=== PATIENT | male | born 1930 | race Caucasian/White ===

== ENCOUNTER 2018-02-01 08:02 | Inpatient (IN) | payer OTHER, MEDICARE ==
[~2018-02-01] VITALS: Ht 165.1 cm; Wt 62.3 kg
[2018-02-01] MEDS ORDERED: FUROSEMIDE 20 MG/2 ML VIAL IV ONE (08:45)
[2018-02-01 09:35] LABS: Basophils # (auto) 0.1 uL; Basophils % (auto) 0.5 % (0.0-2.0); Eosinophils # (auto) 0.1 uL; Hematocrit 34.6 % (41.0-53.0); Hemoglobin 10.9 g/dL (13.5-17.5); Lymphocytes # (auto) 0.7 uL; Lymphocytes % (auto) 7.2 % (10.0-50.0); Mean Corpuscular Hemoglobin 28.8 pg (28.0-32.0); Mean Corpuscular Hgb Conc. 31.7 g/dL (32.0-36.0); Mean Corpuscular Volume 90.8 fL (80.0-100.0); Monocytes # (auto) 0.7 uL; Monocytes % (auto) 6.6 % (0.0-12.0); Neutrophils # (auto) 8.5 uL; Neutrophils % (auto) 84.7 % (37.0-80.0); Platelet Count (auto) 196 10^3/uL (140-450); Red Blood Cells 3.81 10^6/uL (4.5-5.90); Red Cell Distribution Width 16.7 % (11.8-14.3)
[2018-02-01 09:46] LABS: INR 1.11 (0.9-1.15); Prothrombin Time 11.8 sec (9.27-12.13)
[2018-02-01 09:56] LABS: Alanine Aminotransferase 54 U/L (16-61); Albumin 2.9 g/dL (3.4-5.0); Alkaline Phosphatase 105 U/L (45-117); Anion Gap 5 (5-15); Aspartate Aminotransferase 25 U/L (15-37); BUN/Creatinine Ratio 29.4; Bilirubin, Total 0.6 mg/dL (0.2-1.0); Blood Urea Nitrogen 25 mg/dL (7-18); Calcium 8.6 mg/dL (8.5-10.1); Carbon Dioxide 31 mmol/L (21-32); Chloride 103 mmol/L (98-107); GFR African American 110 mL/min; GFR Non-African American 91 mL/min; Glucose 144 mg/dL (74-106); Potassium 3.6 mmol/L (3.5-5.1); Sodium 139 mmol/L (136-145); Total Protein 7.1 g/dL (6.4-8.2)
[2018-02-01] MEDS ORDERED: ONDANSETRON HCL 4 MG/2 ML VIAL IV PRN (10:45)
[2018-02-01] MEDS ORDERED: DEXTROSE (50%) 50ML SYRG IV PRN (10:45)
[2018-02-01] MEDS ORDERED: DOCUSATE SOD 100 MG CAP PO PRN (10:45)
[2018-02-01] MEDS ORDERED: ACETAMINOPHEN 325 MG TAB PO PRN (10:45)
[2018-02-01] MEDS ORDERED: cefTRIAXone 1GM/10ml IVPUSH 10 ML IV ONE (11:00)
[2018-02-01] MEDS: ACCU-CHEK COMFORT CURVE STRIP VI SCH ×3 (11:11→23:29)
[2018-02-01] MEDS: InsuLIN REG 1unit/0.01ml Soln (100units/ml) SC SCH ×3 (11:11→23:29)
[2018-02-01] MEDS: MORPHINE SULFATE 8mg/ml INJ SDV IV PRN ×3 (11:20→23:00)
[2018-02-01] MEDS: Boost Glucose Control 8 Ounces PO SCH ×2 (12:28→18:29)
[2018-02-01 13:10] VITALS: BP 138/86
[2018-02-01] MEDS: ALBUTEROL SULF 2.5 MG/0.5ML(0.5%) NEB SOLN NEB SCH ×2 (13:20→18:40)
[2018-02-01] MEDS: IPRATROPIUM BROM 0.5 MG/2.5ML INH SOL NEB SCH ×2 (13:21→18:40)
[2018-02-01] MEDS: METOPROLOL TARTRATE 25 MG TAB PO SCH ×2 (14:00→22:00)
[2018-02-01 16:01] LABS: Urine Amorphous Crystal FEW /hpf (None Seen); Urine Bacteria NONE SEEN /hpf (None Seen); Urine Blood Negative /uL (Negative); Urine Mucus FEW (None Seen); Urine Specific Gravity 1.006 (1.001-1.035); Urine WBC <1 /hpf (0 - 3)
[2018-02-01 17:00] VITALS: BP 140/79
[2018-02-01] MEDS ORDERED: LEVOTHYROXINE SODIUM 88 MCG TAB PO ONE (17:15)
[2018-02-01] MEDS: SODIUM CHLOR 0.9% PF (SALINE LOCK) 10ML VIAL/SYR IV SCH ×2 (17:23→22:00)
[2018-02-01] MEDS: HALOPERIDOL 1 MG TAB PO PRN (17:53)
[2018-02-01] MEDS: FUROSEMIDE 20 MG/2 ML VIAL IV SCH (18:29)
[2018-02-01 22:00] VITALS: BP 138/83
[2018-02-01] MEDS: FAMOTIDINE 20 MG TAB PO SCH (22:00)
[2018-02-01] MEDS: ASCORBIC ACID 500 MG TAB PO SCH (22:00)
[2018-02-01] MEDS: POTASSIUM CHLORIDE 8 MEQ TAB PO SCH (22:00)
[2018-02-01 22:31] VITALS: BP 138/83
[2018-02-02] MEDS: ALBUTEROL SULF 2.5 MG/0.5ML(0.5%) NEB SOLN NEB SCH ×4 (00:30→18:45)
[2018-02-02] MEDS: IPRATROPIUM BROM 0.5 MG/2.5ML INH SOL NEB SCH ×4 (00:30→18:45)
[2018-02-02 05:00] VITALS: BP 139/88
[2018-02-02] MEDS: METOPROLOL TARTRATE 25 MG TAB PO SCH ×3 (06:00→22:20)
[2018-02-02 06:23] LABS: Basophils # (auto) 0.1 uL; Basophils % (auto) 0.6 % (0.0-2.0); Eosinophils # (auto) 0.2 uL; Eosinophils % (auto) 1.9 % (0.0-7.0); Hematocrit 30.3 % (41.0-53.0); Hemoglobin 10.2 g/dL (13.5-17.5); Lymphocytes # (auto) 0.9 uL; Lymphocytes % (auto) 9.8 % (10.0-50.0); Mean Corpuscular Hemoglobin 29.9 pg (28.0-32.0); Mean Corpuscular Hgb Conc. 33.8 g/dL (32.0-36.0); Mean Corpuscular Volume 88.6 fL (80.0-100.0); Monocytes # (auto) 0.9 uL; Monocytes % (auto) 10.1 % (0.0-12.0); Neutrophils # (auto) 7.1 uL; Neutrophils % (auto) 77.6 % (37.0-80.0); Platelet Count (auto) 182 10^3/uL (140-450); Red Blood Cells 3.42 10^6/uL (4.5-5.90); Red Cell Distribution Width 16.1 % (11.8-14.3); White Blood Cell 9.1 10^3/uL (4.4-10.8)
[2018-02-02] MEDS: FUROSEMIDE 20 MG/2 ML VIAL IV SCH ×2 (06:45→17:23)
[2018-02-02 06:46] LABS: Albumin 2.7 g/dL (3.4-5.0); Calcium 8.3 mg/dL (8.5-10.1); Potassium 3.2 mmol/L (3.5-5.1)
[2018-02-02] MEDS: SODIUM CHLOR 0.9% PF (SALINE LOCK) 10ML VIAL/SYR IV SCH ×3 (06:46→22:26)
[2018-02-02] MEDS: InsuLIN REG 1unit/0.01ml Soln (100units/ml) SC SCH ×4 (06:47→22:00)
[2018-02-02] MEDS: LEVOTHYROXINE SODIUM 88 MCG TAB PO SCH (06:47)
[2018-02-02] MEDS: ACCU-CHEK COMFORT CURVE STRIP VI SCH ×4 (06:47→22:27)
[2018-02-02 06:49] LABS: BUN/Creatinine Ratio 24.4
[2018-02-02 06:53] LABS: Bilirubin, Total 0.8 mg/dL (0.2-1.0); Total Protein 6.8 g/dL (6.4-8.2)
[2018-02-02] MEDS: Boost Glucose Control 8 Ounces PO SCH ×3 (08:00→18:00)
[2018-02-02 09:00] VITALS: BP 109/60
[2018-02-02] MEDS ORDERED: cefTRIAXone 1GM/10ml IVPUSH 10 ML IV SCH (09:00)
[2018-02-02] MEDS: MULTIPLE VITAMIN TAB PO SCH (11:32)
[2018-02-02] MEDS: POTASSIUM CHLORIDE 8 MEQ TAB PO SCH ×2 (11:32→22:20)
[2018-02-02] MEDS: FAMOTIDINE 20 MG TAB PO SCH ×2 (11:32→22:20)
[2018-02-02] MEDS: ASCORBIC ACID 500 MG TAB PO SCH ×2 (11:32→22:20)
[2018-02-02] MEDS: ZINC SULFATE 220 MG CAP PO SCH (11:32)
[2018-02-02 13:00] VITALS: BP 139/71
[2018-02-02] MEDS ORDERED: POTASSIUM CHLORIDE 40 MEQ, LIDOCAINE 1% (LOCAL ANESTH.) 4 ML in SODIUM CHL 0.9% 100 ML IV ONE (14:30)
[2018-02-02] MEDS: HYDROcodone-ACET 5/325MG TAB PO PRN (14:30)
[2018-02-02] MEDS: HALOPERIDOL 1 MG TAB PO PRN (15:13)
[2018-02-02] MEDS: POTASSIUM CHL 20MEQ/100ML 100 ML IV SCH ×2 (17:17→20:00)
[2018-02-02 21:16] VITALS: BP 138/66
[2018-02-02] MEDS: MORPHINE SULFATE 8mg/ml INJ SDV IV PRN (22:27)
[2018-02-03] MEDS: MORPHINE SULFATE 8mg/ml INJ SDV IV PRN (04:30)
[2018-02-03 05:07] VITALS: BP 102/71
[2018-02-03] MEDS: FUROSEMIDE 20 MG/2 ML VIAL IV SCH ×2 (06:00→17:43)
[2018-02-03] MEDS: SODIUM CHLOR 0.9% PF (SALINE LOCK) 10ML VIAL/SYR IV SCH ×3 (06:33→22:00)
[2018-02-03] MEDS: InsuLIN REG 1unit/0.01ml Soln (100units/ml) SC SCH ×4 (06:33→22:00)
[2018-02-03] MEDS: ACCU-CHEK COMFORT CURVE STRIP VI SCH ×4 (06:33→22:00)
[2018-02-03 06:38] LABS: BUN/Creatinine Ratio 26.5; Calcium 8.9 mg/dL (8.5-10.1); Potassium 3.8 mmol/L (3.5-5.1)
[2018-02-03 06:42] LABS: Magnesium 1.8 mg/dL (1.6-2.6)
[2018-02-03] MEDS: METOPROLOL TARTRATE 25 MG TAB PO SCH ×3 (06:46→22:00)
[2018-02-03] MEDS: LEVOTHYROXINE SODIUM 88 MCG TAB PO SCH (06:46)
[2018-02-03] MEDS: ALBUTEROL SULF 2.5 MG/0.5ML(0.5%) NEB SOLN NEB SCH ×4 (07:21→18:39)
[2018-02-03] MEDS: IPRATROPIUM BROM 0.5 MG/2.5ML INH SOL NEB SCH ×4 (07:22→18:39)
[2018-02-03] MEDS: Boost Glucose Control 8 Ounces PO SCH ×3 (08:00→18:00)
[2018-02-03 09:00] VITALS: BP 110/66
[2018-02-03] MEDS: POTASSIUM CHLORIDE 8 MEQ TAB PO SCH ×2 (10:00→22:00)
[2018-02-03] MEDS: ASCORBIC ACID 500 MG TAB PO SCH ×2 (10:00→22:00)
[2018-02-03] MEDS: ZINC SULFATE 220 MG CAP PO SCH (10:00)
[2018-02-03] MEDS: MULTIPLE VITAMIN TAB PO SCH (10:00)
[2018-02-03] MEDS: FAMOTIDINE 20 MG TAB PO SCH ×2 (10:00→22:00)
[2018-02-03 13:00] VITALS: BP 119/69
[2018-02-03] MEDS ORDERED: HALOPERIDOL LACTATE 5 MG/ML INJ VIAL IM ONE (16:30)
[2018-02-03 17:00] VITALS: BP 138/83
[2018-02-03] MEDS ORDERED: HALOPERIDOL LACTATE 5 MG/ML INJ VIAL IM PRN (17:45)
[2018-02-03] MEDS ORDERED: TRANEXAMIC ACID 10 ML ONE (20:27)
[2018-02-03] MEDS ORDERED: LIDOCAINE 1% HCL (LOCAL ANESTH.) INJ 20ML MDV ONE (20:27)
[2018-02-03] MEDS ORDERED: BUPIVACAINE 0.25% INJ 50ML VIAL ONE (20:27)
[2018-02-03] MEDS ORDERED: VANCOMYCIN HCL 1000 MG VL ONE (20:28)
[2018-02-03] MEDS ORDERED: MIDAZOLAM HCL 1MG/1ML-2 ML VIAL ONE ×2 (20:29→22:11)
[2018-02-03] MEDS ORDERED: fentaNYL CITRATE 100 MCG/2 ML VL ONE (20:29)
[2018-02-03] MEDS ORDERED: MEPERIDINE HCL (50 MG/ML) 1 ML VIAL ONE (20:30)
[2018-02-03] MEDS ORDERED: KETOROLAC TROMETH 30 MG/ML 1ML VIAL ONE ×2 (20:32→20:33)
[2018-02-03] MEDS ORDERED: MORPHINE SULF(PF) 0.5MG/ML 10ML VIAL ONE (20:32)
[2018-02-03] MEDS ORDERED: TETRACAINE 1% INJ 2 ML VIAL IJ ONE (20:37)
[2018-02-03] MEDS ORDERED: DEXAMETHASONE SOD PHOS 10MG/1ML VIAL INJ ONE (21:03)
[2018-02-03] MEDS ORDERED: PROPOFOL 10 MG/ML 20 ML IV ONE (21:03)
[2018-02-03] MEDS ORDERED: LABETALOL HCL 5 MG/ML 4ML SYRINGE IV PRN (21:15)
[2018-02-03] MEDS ORDERED: MORPHINE SULFATE 8mg/ml INJ SDV IV PRN ×2 (21:15→22:45)
[2018-02-03] MEDS ORDERED: ePHEDrine SULFATE 50 MG/ML AMP IV PRN (21:15)
[2018-02-03] MEDS ORDERED: HYDROmorphone HCL 2 MG/ML VL IV PRN (21:15)
[2018-02-03] MEDS ORDERED: MIDAZOLAM HCL 1MG/1ML-2 ML VIAL IV PRN (21:15)
[2018-02-03] MEDS ORDERED: ONDANSETRON HCL 4 MG/2 ML VIAL IV ONE (21:15)
[2018-02-03] MEDS ORDERED: KETOROLAC TROMETH 30 MG/ML 1ML VIAL IV ONE (21:15)
[2018-02-03] MEDS ORDERED: PHENYLEPHRINE HCL 10 MG/ML VL ONE (22:14)
[2018-02-03] MEDS ORDERED: NITROGLYCERIN 0.4 MG SL TAB SL PRN (22:45)
[2018-02-04] VITALS (8 sets, daily range): BP systolic 72–111; BP diastolic 44–64
[2018-02-04] MEDS: LACTATED RINGER'S 1,000 ML IV SCH ×3 (00:24→18:15)
[2018-02-04] MEDS: ceFAZolin 1GM/100ML 50 ML IV SCH ×3 (00:25→11:54)
[2018-02-04] MEDS: IPRATROPIUM BROM 0.5 MG/2.5ML INH SOL NEB SCH ×5 (00:29→22:35)
[2018-02-04] MEDS: ALBUTEROL SULF 2.5 MG/0.5ML(0.5%) NEB SOLN NEB SCH ×5 (00:29→22:35)
[2018-02-04] MEDS: FUROSEMIDE 20 MG/2 ML VIAL IV SCH (05:28)
[2018-02-04] MEDS: METOPROLOL TARTRATE 25 MG TAB PO SCH (05:28)
[2018-02-04] MEDS: SODIUM CHLOR 0.9% PF (SALINE LOCK) 10ML VIAL/SYR IV SCH ×3 (05:28→22:35)
[2018-02-04] MEDS: ACCU-CHEK COMFORT CURVE STRIP VI SCH ×4 (06:23→22:00)
[2018-02-04] MEDS: InsuLIN REG 1unit/0.01ml Soln (100units/ml) SC SCH ×4 (06:24→22:43)
[2018-02-04] MEDS: LEVOTHYROXINE SODIUM 88 MCG TAB PO SCH (07:00)
[2018-02-04 07:33] LABS: Albumin 2.4 g/dL (3.4-5.0); BUN/Creatinine Ratio 29.1; Calcium 8.3 mg/dL (8.5-10.1); Potassium 5.1 mmol/L (3.5-5.1)
[2018-02-04 07:40] LABS: Bilirubin, Total 0.6 mg/dL (0.2-1.0)
[2018-02-04 07:41] LABS: Basophils # (auto) 0 uL; Basophils % (auto) 0.1 % (0.0-2.0); Eosinophils # (auto) 0 uL; Eosinophils % (auto) 0.1 % (0.0-7.0); Hemoglobin 9.9 g/dL (13.5-17.5); Lymphocytes # (auto) 0.5 uL; Lymphocytes % (auto) 4.5 % (10.0-50.0); Mean Corpuscular Hemoglobin 29.4 pg (28.0-32.0); Mean Corpuscular Volume 88.9 fL (80.0-100.0); Monocytes # (auto) 0.3 uL; Monocytes % (auto) 2.8 % (0.0-12.0); Neutrophils # (auto) 9.7 uL; Neutrophils % (auto) 92.5 % (37.0-80.0); Platelet Count (auto) 167 10^3/uL (140-450); Red Blood Cells 3.37 10^6/uL (4.5-5.90); Red Cell Distribution Width 17.1 % (11.8-14.3); White Blood Cell 10.5 10^3/uL (4.4-10.8)
[2018-02-04] MEDS: Boost Glucose Control 8 Ounces PO SCH ×3 (08:00→18:00)
[2018-02-04] MEDS: FAMOTIDINE 20 MG TAB PO SCH ×3 (10:00→22:35)
[2018-02-04] MEDS: POTASSIUM CHLORIDE 8 MEQ TAB PO SCH ×2 (10:00→11:10)
[2018-02-04] MEDS: ZINC SULFATE 220 MG CAP PO SCH ×2 (10:00→11:09)
[2018-02-04] MEDS ORDERED: ENOXAPARIN SOD 30 MG/0.3 ML SYRINGE SC SCH (10:00)
[2018-02-04] MEDS: ASCORBIC ACID 500 MG TAB PO SCH ×2 (11:10→22:35)
[2018-02-04] MEDS: MULTIPLE VITAMIN TAB PO SCH (11:10)
[2018-02-04] MEDS ORDERED: LACTATED RINGER'S 1,000 ML IV ONE (16:30)
[2018-02-04] MEDS ORDERED: ALBUMIN 25% 100 ML IV SCH (17:00)
[2018-02-04] MEDS: ALBUMIN 25% 50 ML IV SCH (19:39)
[2018-02-04 20:21] LABS: Basophils # (auto) 0 uL; Basophils % (auto) 0.1 % (0.0-2.0); Eosinophils # (auto) 0 uL; Hematocrit 29.2 % (41.0-53.0); Hemoglobin 9.6 g/dL (13.5-17.5); Lymphocytes # (auto) 0.3 uL; Lymphocytes % (auto) 2.8 % (10.0-50.0); Mean Corpuscular Hemoglobin 29.3 pg (28.0-32.0); Mean Corpuscular Hgb Conc. 32.8 g/dL (32.0-36.0); Mean Corpuscular Volume 89.3 fL (80.0-100.0); Monocytes # (auto) 0.6 uL; Monocytes % (auto) 5.2 % (0.0-12.0); Neutrophils # (auto) 10.1 uL; Neutrophils % (auto) 91.9 % (37.0-80.0); Nucleated Red Blood Cells % 0.1 %; Platelet Count (auto) 172 10^3/uL (140-450); Red Blood Cells 3.27 10^6/uL (4.5-5.90); Red Cell Distribution Width 17.1 % (11.8-14.3)
[2018-02-04] MEDS: HALOPERIDOL 1 MG TAB PO PRN ×2 (22:35→23:43)
[2018-02-05] MEDS ORDERED: DIGOXIN 0.125 MG TAB PO ONE (01:00)
[2018-02-05] MEDS: HYDROcodone-ACET 5/325MG TAB PO PRN (01:13)
[2018-02-05] MEDS: ALBUMIN 25% 50 ML IV SCH ×2 (02:33→10:57)
[2018-02-05 05:00] VITALS: BP 83/55
[2018-02-05 06:11] LABS: Basophils # (auto) 0 uL; Basophils % (auto) 0.1 % (0.0-2.0); Eosinophils # (auto) 0 uL; Hematocrit 24.7 % (41.0-53.0); Hemoglobin 8.4 g/dL (13.5-17.5); Lymphocytes # (auto) 0.5 uL; Monocytes # (auto) 0.7 uL; White Blood Cell 10.9 10^3/uL (4.4-10.8)
[2018-02-05 06:18] LABS: Mean Corpuscular Hemoglobin 29.9 pg (28.0-32.0); Mean Corpuscular Hgb Conc. 34.1 g/dL (32.0-36.0); Mean Corpuscular Volume 87.7 fL (80.0-100.0); Monocytes % (auto) 6.5 % (0.0-12.0); Neutrophils # (auto) 9.7 uL; Neutrophils % (auto) 88.4 % (37.0-80.0); Platelet Count (auto) 145 10^3/uL (140-450); Red Blood Cells 2.81 10^6/uL (4.5-5.90); Red Cell Distribution Width 16.9 % (11.8-14.3)
[2018-02-05] MEDS: ALBUTEROL SULF 2.5 MG/0.5ML(0.5%) NEB SOLN NEB SCH ×3 (06:18→18:10)
[2018-02-05] MEDS: IPRATROPIUM BROM 0.5 MG/2.5ML INH SOL NEB SCH ×3 (06:19→18:10)
[2018-02-05 06:25] LABS: BUN/Creatinine Ratio 47.1; Calcium 8.4 mg/dL (8.5-10.1); Potassium 4.1 mmol/L (3.5-5.1)
[2018-02-05] MEDS: LEVOTHYROXINE SODIUM 88 MCG TAB PO SCH (06:30)
[2018-02-05] MEDS: ACCU-CHEK COMFORT CURVE STRIP VI SCH ×4 (06:31→22:00)
[2018-02-05] MEDS: SODIUM CHLOR 0.9% PF (SALINE LOCK) 10ML VIAL/SYR IV SCH ×3 (07:07→23:00)
[2018-02-05] MEDS: InsuLIN REG 1unit/0.01ml Soln (100units/ml) SC SCH ×4 (07:08→23:02)
[2018-02-05 08:00] VITALS: BP 93/65
[2018-02-05] MEDS: Boost Glucose Control 8 Ounces PO SCH ×3 (08:00→18:00)
[2018-02-05] MEDS: ZINC SULFATE 220 MG CAP PO SCH (10:57)
[2018-02-05] MEDS: LACTATED RINGER'S 1,000 ML IV SCH ×2 (10:58→23:01)
[2018-02-05] MEDS: MULTIPLE VITAMIN TAB PO SCH (10:58)
[2018-02-05] MEDS: ASCORBIC ACID 500 MG TAB PO SCH ×2 (10:58→22:00)
[2018-02-05] MEDS: FAMOTIDINE 20 MG TAB PO SCH ×2 (10:58→22:00)
[2018-02-05 13:00] VITALS: BP 127/69
[2018-02-05] MEDS ORDERED: DIGOXIN (250MCG/ML) 2 ML AMPULE IV ONE (14:30)
[2018-02-05 16:37] VITALS: BP 118/59
[2018-02-05] MEDS: QUEtiapine FUMARATE 25 MG TAB PO SCH (22:00)
[2018-02-05 22:02] VITALS: BP 122/66
[2018-02-06] MEDS: IPRATROPIUM BROM 0.5 MG/2.5ML INH SOL NEB SCH ×2 (01:09→05:54)
[2018-02-06] MEDS: ALBUTEROL SULF 2.5 MG/0.5ML(0.5%) NEB SOLN NEB SCH ×2 (01:10→05:53)
[2018-02-06] MEDS ORDERED: HALOPERIDOL LACTATE 5 MG/ML INJ VIAL IM ONE (02:30)
[2018-02-06] MEDS ORDERED: diphenhdrAMINE HCL 50 MG/1 ML VL IV ONE (02:30)
[2018-02-06 05:00] VITALS: BP 122/58
[2018-02-06 06:12] LABS: Basophils # (auto) 0 uL; Basophils % (auto) 0.1 % (0.0-2.0); Eosinophils # (auto) 0.1 uL; Hemoglobin 8.8 g/dL (13.5-17.5); Lymphocytes # (auto) 0.8 uL; Mean Corpuscular Hemoglobin 29.9 pg (28.0-32.0); Mean Corpuscular Hgb Conc. 33.7 g/dL (32.0-36.0); Mean Corpuscular Volume 88.7 fL (80.0-100.0); Monocytes # (auto) 0.8 uL; Monocytes % (auto) 9.4 % (0.0-12.0); Neutrophils # (auto) 6.8 uL; Neutrophils % (auto) 80.5 % (37.0-80.0); Platelet Count (auto) 138 10^3/uL (140-450); Red Blood Cells 2.94 10^6/uL (4.5-5.90); Red Cell Distribution Width 17.7 % (11.8-14.3); White Blood Cell 8.4 10^3/uL (4.4-10.8)
[2018-02-06] MEDS: LEVOTHYROXINE SODIUM 88 MCG TAB PO SCH (06:54)
[2018-02-06] MEDS: SODIUM CHLOR 0.9% PF (SALINE LOCK) 10ML VIAL/SYR IV SCH ×3 (06:54→22:50)
[2018-02-06] MEDS: InsuLIN REG 1unit/0.01ml Soln (100units/ml) SC SCH ×4 (06:58→22:00)
[2018-02-06] MEDS: ACCU-CHEK COMFORT CURVE STRIP VI SCH ×4 (06:58→22:00)
[2018-02-06 09:00] VITALS: BP 138/83
[2018-02-06] MEDS: ZINC SULFATE 220 MG CAP PO SCH (10:00)
[2018-02-06] MEDS ORDERED: ASPirin 81 mg TAB PO ONE (10:30)
[2018-02-06] MEDS: MULTIPLE VITAMIN TAB PO SCH (11:27)
[2018-02-06] MEDS: FAMOTIDINE 20 MG TAB PO SCH ×2 (11:27→22:50)
[2018-02-06] MEDS: DIGOXIN 0.25 MG TAB PO SCH (11:28)
[2018-02-06] MEDS: ASCORBIC ACID 500 MG TAB PO SCH ×2 (11:30→22:49)
[2018-02-06] MEDS: Boost Glucose Control 8 Ounces PO SCH ×3 (12:00→18:54)
[2018-02-06 13:00] VITALS: BP 130/54
[2018-02-06 16:16] VITALS: BP 133/81
[2018-02-06] MEDS ORDERED: TAMSULOSIN HYDROCHLORIDE 0.4 MG CAP PO ONE (18:30)
[2018-02-06 21:00] VITALS: BP 135/85
[2018-02-06] MEDS: QUEtiapine FUMARATE 25 MG TAB PO SCH (22:49)
[2018-02-07 05:10] VITALS: BP 141/82
[2018-02-07] MEDS: InsuLIN REG 1unit/0.01ml Soln (100units/ml) SC SCH ×4 (07:00→22:00)
[2018-02-07] MEDS: SODIUM CHLOR 0.9% PF (SALINE LOCK) 10ML VIAL/SYR IV SCH ×3 (07:01→22:52)
[2018-02-07] MEDS: LEVOTHYROXINE SODIUM 88 MCG TAB PO SCH (07:01)
[2018-02-07] MEDS: ACCU-CHEK COMFORT CURVE STRIP VI SCH ×4 (07:02→22:00)
[2018-02-07 08:00] VITALS: BP 116/98
[2018-02-07] MEDS: ASPirin 81 mg TAB PO SCH (09:49)
[2018-02-07] MEDS: DIGOXIN 0.25 MG TAB PO SCH (09:50)
[2018-02-07] MEDS: FAMOTIDINE 20 MG TAB PO SCH ×2 (09:50→22:52)
[2018-02-07] MEDS: ASCORBIC ACID 500 MG TAB PO SCH ×2 (09:50→22:52)
[2018-02-07] MEDS: ZINC SULFATE 220 MG CAP PO SCH (09:50)
[2018-02-07] MEDS: MULTIPLE VITAMIN TAB PO SCH (09:50)
[2018-02-07] MEDS: Boost Glucose Control 8 Ounces PO SCH ×3 (09:51→19:15)
[2018-02-07 11:36] VITALS: BP 110/87
[2018-02-07] MEDS: METOPROLOL SUCCINATE XL 50 MG TAB PO SCH (11:45)
[2018-02-07 16:30] VITALS: BP 119/74
[2018-02-07] MEDS ORDERED: TAMSULOSIN HYDROCHLORIDE 0.4 MG CAP PO SCH (18:00)
[2018-02-07 21:13] VITALS: BP 110/80
[2018-02-07] MEDS: QUEtiapine FUMARATE 25 MG TAB PO SCH (22:52)
[2018-02-08 05:30] VITALS: BP 110/72
[2018-02-08] MEDS: InsuLIN REG 1unit/0.01ml Soln (100units/ml) SC SCH ×4 (07:00→22:00)
[2018-02-08] MEDS: LEVOTHYROXINE SODIUM 88 MCG TAB PO SCH (07:08)
[2018-02-08] MEDS: ACCU-CHEK COMFORT CURVE STRIP VI SCH ×4 (07:09→22:00)
[2018-02-08] MEDS: SODIUM CHLOR 0.9% PF (SALINE LOCK) 10ML VIAL/SYR IV SCH ×3 (07:09→23:09)
[2018-02-08] MEDS: Boost Glucose Control 8 Ounces PO SCH ×3 (08:00→18:00)
[2018-02-08 09:00] VITALS: BP 122/61
[2018-02-08 09:49] LABS: Basophils # (auto) 0 uL; Basophils % (auto) 0.4 % (0.0-2.0); Eosinophils # (auto) 0.5 uL; Eosinophils % (auto) 5.8 % (0.0-7.0); Hematocrit 27.5 % (41.0-53.0); Mean Corpuscular Hgb Conc. 32.7 g/dL (32.0-36.0); Mean Corpuscular Volume 88.7 fL (80.0-100.0); Monocytes # (auto) 0.8 uL; Monocytes % (auto) 9.5 % (0.0-12.0); Neutrophils # (auto) 5.8 uL; Neutrophils % (auto) 72.3 % (37.0-80.0); Platelet Count (auto) 162 10^3/uL (140-450); Red Cell Distribution Width 17.7 % (11.8-14.3)
[2018-02-08 10:12] LABS: Albumin 2.1 g/dL (3.4-5.0); BUN/Creatinine Ratio 34.2; Calcium 8.3 mg/dL (8.5-10.1); Potassium 4.5 mmol/L (3.5-5.1)
[2018-02-08 10:15] LABS: Bilirubin, Total 0.8 mg/dL (0.2-1.0)
[2018-02-08] MEDS: ASCORBIC ACID 500 MG TAB PO SCH ×2 (10:26→23:07)
[2018-02-08] MEDS: FAMOTIDINE 20 MG TAB PO SCH ×2 (10:26→23:07)
[2018-02-08] MEDS: ZINC SULFATE 220 MG CAP PO SCH (10:26)
[2018-02-08] MEDS: MULTIPLE VITAMIN TAB PO SCH (10:27)
[2018-02-08] MEDS: ASPirin 81 mg TAB PO SCH (10:27)
[2018-02-08] MEDS: METOPROLOL SUCCINATE XL 50 MG TAB PO SCH (10:28)
[2018-02-08] MEDS: DIGOXIN 0.25 MG TAB PO SCH (10:34)
[2018-02-08 12:30] VITALS: BP 97/56
[2018-02-08 17:14] VITALS: BP 119/62
[2018-02-08 21:30] VITALS: BP 124/50
[2018-02-08] MEDS: QUEtiapine FUMARATE 25 MG TAB PO SCH (23:08)
[2018-02-09 05:00] VITALS: BP 121/57
[2018-02-09] MEDS: SODIUM CHLOR 0.9% PF (SALINE LOCK) 10ML VIAL/SYR IV SCH ×2 (06:47→12:06)
[2018-02-09] MEDS: LEVOTHYROXINE SODIUM 88 MCG TAB PO SCH (06:48)
[2018-02-09] MEDS: ACCU-CHEK COMFORT CURVE STRIP VI SCH ×3 (06:48→16:58)
[2018-02-09] MEDS: InsuLIN REG 1unit/0.01ml Soln (100units/ml) SC SCH ×3 (06:49→16:58)
[2018-02-09] MEDS: FAMOTIDINE 20 MG TAB PO SCH (07:50)
[2018-02-09] MEDS: MULTIPLE VITAMIN TAB PO SCH (07:50)
[2018-02-09] MEDS: ASCORBIC ACID 500 MG TAB PO SCH (07:50)
[2018-02-09] MEDS: METOPROLOL SUCCINATE XL 50 MG TAB PO SCH (07:50)
[2018-02-09] MEDS: DIGOXIN 0.25 MG TAB PO SCH (07:50)
[2018-02-09] MEDS: ZINC SULFATE 220 MG CAP PO SCH (07:50)
[2018-02-09] MEDS: Boost Glucose Control 8 Ounces PO SCH ×3 (07:51→16:59)
[2018-02-09] MEDS: ASPirin 81 mg TAB PO SCH (07:51)
[2018-02-09 09:00] VITALS: BP 126/38
[2018-02-09 12:09] VITALS: BP 97/44
[2018-02-09] MEDS: HALOPERIDOL 1 MG TAB PO PRN (15:53)
[2018-02-09 18:02] VITALS: BP 121/92
== END 2018-02-09 20:03 | DRG 469 ==
LOC: EDBD 08:02 → ER 08:02 → OVERFLOW 08:03 → CENTRAL 11:47 → TELE-CENTR 02-04 00:42
PROVIDERS: ADMIT Internal Medicine; ATTEND Internal Medicine
PROC: 0SRR0JZ Replacement of Right Hip Joint, Femoral Surface with Synthetic Substitute, Open Approach (ICD-10-PCS; principal; 2018-02-04)
DX: S72.011A Unspecified intracapsular fracture of right femur, initial encounter for closed fracture (principal); I50.33 Acute on chronic diastolic (congestive) heart failure; E44.0 Moderate protein-calorie malnutrition; E11.65 Type 2 diabetes mellitus with hyperglycemia; F03.91 Unspecified dementia, unspecified severity, with behavioral disturbance; I48.2 Chronic atrial fibrillation; I48.92 Unspecified atrial flutter; E11.22 Type 2 diabetes mellitus with diabetic chronic kidney disease; B95.62 Methicillin resistant Staphylococcus aureus infection as the cause of diseases classified elsewhere; D63.8 Anemia in other chronic diseases classified elsewhere; I13.0 Hypertensive heart and chronic kidney disease with heart failure and stage 1 through stage 4 chronic kidney disease, or unspecified chronic kidney disease; R79.89 Other specified abnormal findings of blood chemistry; R33.9 Retention of urine, unspecified; T50.2X5A Adverse effect of carbonic-anhydrase inhibitors, benzothiadiazides and other diuretics, initial encounter; I95.81 Postprocedural hypotension; E03.9 Hypothyroidism, unspecified; J44.9 Chronic obstructive pulmonary disease, unspecified; W19.XXXA Unspecified fall, initial encounter; N18.9 Chronic kidney disease, unspecified; S01.81XA Laceration without foreign body of other part of head, initial encounter; Y93.01 Activity, walking, marching and hiking; Z51.5 Encounter for palliative care; W01.0XXA Fall on same level from slipping, tripping and stumbling without subsequent striking against object, initial encounter; Y93.89 Activity, other specified; Y92.89 Other specified places as the place of occurrence of the external cause; Y99.8 Other external cause status; Z68.22 Body mass index [BMI] 22.0-22.9, adult; Z71.3 Dietary counseling and surveillance
CPT/HCPCS: 36415; 70450; 71045; 72170; 73502; 73562; 73700; 80048; 80053; 81001; 82962; 83036; 83735; 83880; 84443; 84484; 85025; 85610; 85730; 86850; 86900; 86901; 87081; 87086; 93306; 93970; 94640; 96374; 96375; 97110; 97116; 97163; 97530; A4565; J0690; J1100; J1815; J1885; J2001; J2250; J2270; J2405; J2704; J3480; J3490